=== PATIENT | male | born 1970 | race Caucasian/White ===

== ENCOUNTER 2024-08-02 01:23 | Emergency (ER) | payer OTHER, SELFPAY ==
[2024-08-02 01:30] VITALS: BP 134/73; PULSE 71; RESP 18; TEMP 36.6; O2SAT 96; BMI 35.6
--- NOTE | 2024-08-02 03:23 | ED_ITS ---
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 Patient is able to move it in all directions without any difficulty. His last tetanus was it is was within the last 5 years. He denies any numbness, tingling, fever or chills, or foreign body sensation. Other than what is stated 14 point review of system is negative. Related Data Previous Rx's Medication Instructions Recorded cephalexin 500 mg capsule 500 mg PO Q6H 7 days #28 caps 08/02/24 cephalexin 500 mg capsule 500 mg PO Q6H 7 days #28 caps 08/02/24 Allergies Allergy/AdvReac Type Severity Reaction Status Date / Time No Known Drug Allergies Allergy Verified 08/02/24 03:40 Review of Systems Review of Systems ROS Unobtainable: All systems reviewed & are unremarkable except as noted in HPI and below Patient History Social History Smoking Status: Never smoker Smoking Status: Never smoker Exam Narrative Exam Narrative: GENERAL: [54] year old patient appears stated age. Well-developed patient, in mild distress. HEAD: Atraumatic. Normocephalic. EYES: Pupils equal round and reactive. Extraocular motions intact. No scleral icterus. No injection or drainage. EXTREMITIES: No edema or joint tenderness. BACK: Nontender without deformity or crepitance. No flank tenderness. NEURO: AOx3. SKIN: L index finger dorsally over the MP and DP jagged irregular shape 1 x1 cm wound with skin torn off with FROM of L index finger motor/sensory intact +2 rad pulse cap refill <2secs Initial Vital Signs Initial Vital Signs: Vital Signs Temperature 97.8 F 08/02/24 01:30 Pulse Rate 71 08/02/24 01:30 Respiratory Rate 18 08/02/24 01:30 Blood Pressure 134/73 08/02/24 01:30 Pulse Oximetry 96 08/02/24 01:30 Oxygen Delivery Method Room Air 08/02/24 01:30 Course Vital Signs Vital signs: Vital Signs - 8 hr 08/02/24 01:30 Temperature 97.8 F Pulse Rate 71 Respiratory Rate 18 Blood Pressure 134/73 Pulse Oximetry 96 Oxygen Delivery Method Room Air MDM - Wound/Laceration MDM Narrative Medical decision making narrative: Vital signs, nurse triage note, medication list, and all previous ER visits all reviewed. Patient had topical bacitracin applied directly to open wound and given cephalexin here. Differential diagnosis includes open wound, laceration, foreign body, and cellulitis. DC home on cephalexin. Patient was offered suturing as patient may scar but he refused and wanted only antibiotics at this time. Return with new or worsening symptoms and to follow up with his PCP in 1- 2 weeks for re-evaluation. Discharge Plan Departure Patient Disposition: Home Clinical Impression: Avulsion of skin, Open wound Instructions: Skin Wound Activity Restrictions/Additional Instructions: Return with new or worsening symptoms. Take your medicine as directed. Follow up with PCP in 1-2 weeks for wound recheck Prescriptions: New cephalexin 500 mg capsule 500 mg PO Q6H 7 Days Qty: 28 0RF cephalexin 500 mg capsule 500 mg PO Q6H 7 Days Qty: 28 0RF Stand Alone Forms: Patient Portal/API/Survey
[2024-08-02] MEDS: cephALEXin 250 MG CAPSULE 500 MG PO (03:39)
[2024-08-02] MEDS: BACITRACIN OINT 0.9 GM PCKT 1 APPLIC TOP (03:39)
[2024-08-02 03:49] VITALS: BP 125/79; PULSE 64; RESP 17; O2SAT 97
== END 2024-08-02 04:05 | disposition home or self-care (01) ==
PROVIDERS: Emergency Provider Family Medicine
DX: S61.211A Laceration without foreign body of left index finger without damage to nail, initial encounter (principal); X58.XXXA Exposure to other specified factors, initial encounter
CPT/HCPCS: 99283